=== PATIENT | male | born 1990 | race Caucasian/White ===

== ENCOUNTER 2016-06-23 16:26 | Emergency (ER) | payer SELFPAY ==
[~2016-06-23] VITALS: Ht 182.9 cm; Wt 69.0 kg
[~2016-06-23 16:26] MED LIST: AMOX875 PO; OFLO.3%A LEFT EAR
[2016-06-23 16:28] VITALS: BP 143/83; PULSE 80; RESP 15; TEMP 98.3; O2SAT 100
[2016-06-23] MEDS ORDERED: SODIUM CHLOR 0.9% 1000 ML INJ 1,000 ML IV ONE (16:43)
--- NOTE | 2016-06-23 16:43 | PD ---
HPI Chief Complaint: Headache Time Seen by Provider: 16:38 Travel History International Travel<30 days: No Contact w/Intl Traveler<30days: No Traveled to known affect area: No History of Present Illness HPI 25-year-old male complains of generalized cephalgia intermittently for about 7 days or so. Nausea reported. He denies vomiting. Light and sound worsens the pain. He reports a lifelong history of migraines. He has tried various interventions including caffeine and extra sleep and increased liquids and solids. It seems that nothing is helping. He states the pain is severe. No sick contacts. No neck stiffness. Onset gradual. Subjective fever from a few days ago is reported. No loss of consciousness. 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 History Social History Alcohol Use: Yes ("OCCASIONALLY") Tobacco Use: Yes (1 ppd) Allergies-Medications (Allergen,Severity, Reaction): Coded Allergies: No Known Allergies (Verified , 06/23/16) Reported Meds & Prescriptions Reported Meds & Active Scripts Active Phenergan (Promethazine HCl) 25 Mg Tab 25 Mg PO Q6H PRN Review of Systems Except as stated in HPI: all other systems reviewed are Neg General / Constitutional: Positive: Fever (subjective fever reported) Physical Exam Narrative GENERAL: 25 yo M, WNWD, mild distress SKIN: Warm and dry. HEAD: Atraumatic. Normocephalic. EYES: Pupils equal and round. No scleral icterus. No injection or drainage. ENT: No nasal bleeding or discharge. Mucous membranes pink and moist. NECK: Trachea midline. No JVD. CARDIOVASCULAR: Regular rate and rhythm. RESPIRATORY: No accessory muscle use. Clear to auscultation. Breath sounds equal bilaterally. GASTROINTESTINAL: Abdomen soft, non-tender, nondistended. Hepatic and splenic margins not palpable. MUSCULOSKELETAL: Extremities without clubbing, cyanosis, or edema. No obvious deformities. NEUROLOGICAL: Normal ROM of neck. Speech memory mentation normal. Pt ambulatory. No facial asymmetry. PSYCHIATRIC: Appropriate mood and affect; insight and judgment normal. Data Data Last Documented VS Vital Signs Date Time Temp Pulse Resp B/P Pulse Ox O2 Delivery O2 Flow Rate FiO2 06/23/16 17:22 78 18 134/78 99 Room Air 06/23/16 16:28 98.3 VS reviewed Orders Complete Blood Count With Diff (06/23/16 16:43) Basic Metabolic Panel (Bmp) (06/23/16 16:43) Ct Brain W/O Iv Contrast(Rout) (06/23/16 16:43) Ecg Monitoring (06/23/16 16:43) Iv Access Insert/Monitor (06/23/16 16:43) Oximetry (06/23/16 16:43) Sodium Chloride 0.9% Flush (Ns Flush) (06/23/16 16:45) Acetaminophen (Tylenol) (06/23/16 16:45) Prochlorperazine Inj (Compazine Inj) (06/23/16 16:45) Diphenhydramine Inj (Benadryl Inj) (06/23/16 16:45) Sodium Chlor 0.9% 1000 Ml Inj (Ns 1000 M (06/23/16 16:43) Labs Laboratory Tests Test 06/23/16 16:50 White Blood Count 7.2 TH/MM3 Red Blood Count 4.88 MIL/MM3 Hemoglobin 14.4 GM/DL Hematocrit 41.8 % Mean Corpuscular Volume 85.6 FL Mean Corpuscular Hemoglobin 29.4 PG Mean Corpuscular Hemoglobin 34.4 % Concent Red Cell Distribution Width 12.8 % Platelet Count 188 TH/MM3 Mean Platelet Volume 8.9 FL Neutrophils (%) (Auto) 54.7 % Lymphocytes (%) (Auto) 33.2 % Monocytes (%) (Auto) 7.8 % Eosinophils (%) (Auto) 2.9 % Basophils (%) (Auto) 1.4 % Neutrophils # (Auto) 3.9 TH/MM3 Lymphocytes # (Auto) 2.4 TH/MM3 Monocytes # (Auto) 0.6 TH/MM3 Eosinophils # (Auto) 0.2 TH/MM3 Basophils # (Auto) 0.1 TH/MM3 CBC Comment DIFF FINAL Differential Comment Sodium Level 143 MEQ/L Potassium Level 3.9 MEQ/L Chloride Level 108 MEQ/L Carbon Dioxide Level 28.3 MEQ/L Anion Gap 7 MEQ/L Blood Urea Nitrogen 8 MG/DL Creatinine 1.10 MG/DL Estimat Glomerular Filtration 81 ML/MIN Rate Random Glucose 98 MG/DL Calcium Level 8.8 MG/DL MDM Medical Decision Making Medical Screen Exam Complete: Yes Emergency Medical Condition: Yes Medical Record Reviewed: Yes Differential Diagnosis ICH, tumor, migraine, tension headache, dehydration, thrombotic disease, meningitis Narrative Course CBC & BMP Diagram 06/23/16 16:50 Last [address] 06/23/16 1643 Signed Impressions: Service Date/Time: Thursday, June 23, 2016 17:01 - CONCLUSION: Normal examination for a patient of this age. Ron Colon MD The patient is resting comfortably and feels better, is alert and in no distress. The patients results and examination findings were discussed. The repeat examination is unremarkable and benign. The history, exam, diagnostic testing, and current condition do not suggest any significant pathology to warrant further testing, continued ED treatment, admission, or surgical evaluation at this point. The vital signs have been stable. The patient does not have uncontrollable pain, intractable vomiting, or other significant symptoms. The patient's condition is stable and appropriate for discharge. The patient will pursue further outpatient evaluation with a primary care physician or other designated or consulting physician as indicated in the discharge instructions. The patient expressed understanding and was agreeable with this plan. Diagnosis Primary Impression: Cephalgia Qualified Code: R51 - Nonintractable headache, unspecified chronicity pattern , unspecified headache type Referrals: Primary Care Physician 2 days Additional Instructions: You have a choice when it comes to health care, and we are glad that you chose [facility]. Hopefully, we have met your expectations on today's visit. You are welcome to return to [facility] at any time, as we are committed to meeting the health care needs of our community. Med/Other Pt SpecificInfo: Prescription(s) given Scripts Promethazine (Phenergan)25 Mg Tab25 Mg PO Q6H PRN (MIGRAINE HEADACHE) #20 TAB Ref 0 Prov:Jarod Torres MD 06/23/16 Disposition: 01 DISCHARGE HOME Condition: Stable Jarod Torres MD June 23, 2016 16:43
[2016-06-23] MEDS ORDERED: ACETAMINOPHEN 325 MG TAB PO ONE (16:45)
[2016-06-23] MEDS ORDERED: PROCHLORPERAZINE INJ 10 MG/2 ML VIAL IVP ONE (16:45)
[2016-06-23] MEDS ORDERED: SODIUM CHLORIDE 0.9% FLUSH 10 ML FLUSH IVF PRN (16:45)
[2016-06-23] MEDS ORDERED: diphenhydrAMINE HCL 50 MG/ML VIAL IVP ONE (16:45)
[2016-06-23 16:50] VITALS: O2SAT 98
[2016-06-23] MEDS ORDERED: PROM25TA5 PO (16:53)
[2016-06-23 17:11] LABS: POTASSIUM 3.9 MEQ/L (3.5-5.1)
[2016-06-23 17:14] LABS: BICARBONATE 28.3 MEQ/L (21.0-32.0)
[2016-06-23 17:16] LABS: AUTOMATED NEUTROPHIL # 3.9 TH/MM3 (1.8-7.7); BASOPHIL # 0.1 TH/MM3 (0-0.2); BASOPHIL % 1.4 % (0.0-2.0); EOSINOPHIL # 0.2 TH/MM3 (0-0.4); EOSINOPHIL % 2.9 % (0.0-4.0); HEMATOCRIT 41.8 % (39.0-51.0); HEMO FLAGS DIFF FINAL; LYMPH % 33.2 % (9.0-44.0); LYMPHOCYTE # 2.4 TH/MM3 (1.0-4.8); MEAN CELL VOLUME 85.6 FL (80.0-100.0); MEAN CORPUSCULAR HEMOGLOBIN 29.4 PG (27.0-34.0); MEAN CORPUSCULAR HGB CONC 34.4 % (32.0-36.0); MONO % 7.8 % (0.0-8.0); NEUT % 54.7 % (16.0-70.0); PLATELET COUNT 188 TH/MM3 (150-450); RED BLOOD COUNT 4.88 MIL/MM3 (4.50-5.90); RED CELL DISTRIBUTION WIDTH 12.8 % (11.6-17.2); WHITE BLOOD COUNT 7.2 TH/MM3 (4.0-11.0)
[2016-06-23 17:22] VITALS: BP 134/78; PULSE 78; RESP 18; O2SAT 99
--- NOTE | 2016-06-23 17:57 | RADHPO ---
EXAM DATE/TIME: 06/23/2016 17:01 [facility] COMPARISON: No previous studies available for comparison. INDICATIONS : Headache. RADIATION DOSE: 60.52 CTDIvol (mGy) MEDICAL HISTORY : None SURGICAL HISTORY : None. ENCOUNTER: Initial ACUITY: 1 week PAIN SCALE: 4/10 LOCATION: cranial TECHNIQUE: Multiple contiguous axial images were obtained of the head. Using automated exposure control and adj ustment of the mA and/or kV according to patient size, radiation dose was kept as low as reasonably a chievable to obtain optimal diagnostic quality images. FINDINGS: CEREBRUM: The ventricles are normal for age. No evidence of midline shift, mass lesion, hemorrhage or acute in farction. No extra-axial fluid collections are seen. POSTERIOR FOSSA: The cerebellum and brainstem are intact. The 4th ventricle is midline. The cerebellopontine angle i s unremarkable. EXTRACRANIAL: The visualized portion of the orbits is intact. SKULL: The calvaria is intact. No evidence of skull fracture. CONCLUSION: Normal examination for a patient of this age. Ron Colon MD on June 23, 2016 at 17:52 Board Certified Radiologist. This report was verified electronically.
== END 2016-06-23 18:11 | disposition home or self-care (01) ==
LOC: PHED 16:26
DX: R51 Headache (principal); F17.210 Nicotine dependence, cigarettes, uncomplicated
CPT/HCPCS: 70450; 80048; 85025; 96374; 96375; 99284; J0780; J1200; J7030